=== PATIENT | female | born 1970 | race Caucasian/White ===

== ENCOUNTER 2024-09-06 08:03 | Day surgery (SDC) | payer OTHER ==
[2024-09-06] MEDS ORDERED: Lactated Ringers 1,000 ML IV SCH (08:45)
[2024-09-06] MEDS: Lactated Ringers 1,000 ML IV SCH (09:04)
[2024-09-06] MEDS ORDERED: Midazolam 1 MG/ML 2 ML SDV ONE (09:39)
[2024-09-06] MEDS ORDERED: fentaNYL 100 MCG/2 ML SDV ONE (09:39)
[2024-09-06] MEDS ORDERED: Propofol 200 MG/20 ML SDV ONE (09:39)
[2024-09-06 11:04] VITALS: BP 133/94; PULSE 55
== END 2024-09-06 11:19 | disposition home or self-care (01) ==
LOC: JP.SDS 08:03
PROVIDERS: ATTEND Surgery
DX: K20.90 Esophagitis, unspecified without bleeding (principal); I10 Essential (primary) hypertension; Z98.84 Bariatric surgery status
CPT/HCPCS: 00731; 43239; 88305; 88312; J2250; J2704; J3010; J7120